=== PATIENT | female | born 2000 | race Hispanic/Latino ===

== ENCOUNTER 2022-02-10 13:01 | Outpatient (CLI) | payer OTHER | END 2022-02-10 13:02 | disposition home or self-care (01) | LOC: CSHLAB 13:01 | PROVIDERS: ATTEND Advanced Practice Midwife | DX: Z20.822 Contact with and (suspected) exposure to COVID-19 (principal) | CPT/HCPCS: U0003; U0005 ==

== ENCOUNTER 2022-02-14 | Inpatient (IN) | payer OTHER ==
[2022-02-14] MEDS ORDERED: hydrALAZINE 20 MG/ML VIAL SLOW IVP PRN ×2 (01:00→12:59)
[2022-02-14] MEDS ORDERED: Ondansetron PF 4 MG/2 ML Vial IVP PRN ×2 (01:00→12:59)
[2022-02-14] MEDS ORDERED: Promethazine HCl 25 MG/ML VIAL IM PRN ×2 (01:00→12:59)
[2022-02-14] MEDS ORDERED: ceFAZolin 2 GM/Dextrose 50 ML 2 GM in Premix Bag 1 BAG IVPB SCH (01:00)
[2022-02-14] MEDS ORDERED: Bicitra 30 ML UDCUP PO PRN (01:00)
[2022-02-14] MEDS ORDERED: Famotidine/PF 20 mg/2ml Vial SLOW IVP PRN (01:00)
[2022-02-14] MEDS ORDERED: Butorphanol Tartrate 1 MG/ML VIAL SLOW IVP PRN (01:00)
[2022-02-14 01:17] LABS: Hemoglobin 12.7 g/dL (12.0-15.5); Mean Corpuscular HGB CONC 32.8 g/dL (32.0-36.0); Mean Corpuscular Hemoglobin 28.5 pg (27.0-33.0); Mean Corpuscular Volume 86.8 fl (81.6-98.3); Mean Platelet Volume 12.4 fl (7.4-10.4); Platelet Count 248 10x3/uL (150-450); RBC Distribution Width 13.9 % (11.5-14.5); Red Blood Cell (RBC) Count 4.46 10x6/uL (3.90-5.03); White Blood Cell (WBC) Count 11.1 10x3/uL (3.5-10.5)
[2022-02-14] MEDS ORDERED: Lactated Ringer's 1,000 ML IV SCH ×2 (01:30→02:00)
[2022-02-14 01:43] LABS: Hep B Surf Ag Non-Reactive S/CO (NonReactive)
[2022-02-14 01:43] LABS: Syphilis Antibody Nonreactive (Nonreactive); Syphilis Antibody Index 0.05 S/CO (<1.00 Non-Reactive)
[2022-02-14 01:45] LABS: HBSAg Index 0.16 S/CO (0-0.99)
[2022-02-14 03:20] VITALS: BMI 43.0
[2022-02-14] MEDS ORDERED: PHENYLEPHRINE-NS 100 MCG/ML 10 ML SYRINGE ONE (05:35)
[2022-02-14] MEDS ORDERED: Morphine PF 10 MG/10 ML VIAL ONE (05:35)
[2022-02-14] MEDS ORDERED: Ondansetron PF 4 MG/2 ML Vial ONE (05:37)
[2022-02-14] MEDS ORDERED: Oxytocin 10 UNITS/ML VIAL ONE (05:37)
[2022-02-14] MEDS ORDERED: Fentanyl 100 MCG/2 ML VIAL SLOW IVP PRN (07:18)
[2022-02-14] MEDS ORDERED: Ondansetron HCl/PF 4 MG/2 ML Vial IVP PRN (07:18)
[2022-02-14] MEDS ORDERED: Meperidine HCl/PF 25 MG/ML VIAL SLOW IVP PRN (07:18)
[2022-02-14] MEDS ORDERED: HYDROmorphone 2 MG/ML VIAL SLOW IVP PRN (07:18)
[2022-02-14] MEDS ORDERED: Ketorolac Tromethamine 30 MG/ML VIAL IVP SCH ×2 (07:30→16:00)
[2022-02-14] MEDS ORDERED: Ketorolac Tromethamine 30 MG/ML VIAL ONE (07:38)
[2022-02-14 08:10] LABS: pH (Cord, venous) 7.292 (7.250-7.350)
[2022-02-14] MEDS ORDERED: NS w/ Oxytocin 30 units 500 ML ONE (10:51)
[2022-02-14] MEDS ORDERED: Zolpidem Tartrate 5 MG TAB PO PRN (12:59)
[2022-02-14] MEDS ORDERED: Boostrix 0.5 ML (Tdap) VIAL IM ONE (12:59)
[2022-02-14] MEDS ORDERED: Lanolin Ointment 7 GM TUBE TOP PRN (12:59)
[2022-02-14] MEDS ORDERED: diphenhydrAMINE 25 MG CAP PO PRN (12:59)
[2022-02-14] MEDS ORDERED: Meperidine HCl/PF 25 MG/ML VIAL IM PRN (12:59)
[2022-02-14] MEDS ORDERED: HYDROcodone/Acetaminophen 5/325 mg Tablet PO PRN (12:59)
[2022-02-14] MEDS ORDERED: Simethicone Chewable 80 MG TAB PO PRN (12:59)
[2022-02-14] MEDS ORDERED: NS w/ Oxytocin 30 units 500 ML IV SCH (12:59)
[2022-02-14] MEDS ORDERED: Prenatal Vitamin 1 TAB PO SCH (13:15)
[2022-02-14] MEDS ORDERED: Docusate 100 MG CAP PO SCH (13:15)
[2022-02-14] MEDS ORDERED: Ibuprofen 800 MG TAB PO SCH (14:00)
[2022-02-14] MEDS: Lactated Ringer's 1,000 ML IV SCH ×2 (14:15→21:12)
[2022-02-14] MEDS: Ibuprofen 800 MG TAB PO SCH (21:03)
[2022-02-14] MEDS: Docusate 100 MG CAP PO SCH (21:03)
[2022-02-15 03:53] LABS: Hemoglobin 10.6 g/dL (12.0-15.5); Mean Corpuscular HGB CONC 34.1 g/dL (32.0-36.0); Mean Corpuscular Hemoglobin 29.3 pg (27.0-33.0); Mean Corpuscular Volume 85.9 fl (81.6-98.3); Mean Platelet Volume 12.1 fl (7.4-10.4); Platelet Count 184 10x3/uL (150-450); RBC Distribution Width 14.2 % (11.5-14.5); Red Blood Cell (RBC) Count 3.62 10x6/uL (3.90-5.03)
[2022-02-15] MEDS: Lactated Ringer's 1,000 ML IV SCH ×2 (05:14→14:25)
[2022-02-15] MEDS: Ibuprofen 800 MG TAB PO SCH ×3 (05:55→21:47)
[2022-02-15] MEDS: Docusate 100 MG CAP PO SCH ×2 (08:04→21:47)
[2022-02-15] MEDS: Prenatal Vitamin 1 TAB PO SCH (08:04)
[2022-02-15] MEDS: HYDROcodone/Acetaminophen 5/325 mg Tablet PO PRN ×2 (12:24→19:36)
[2022-02-16] MEDS: HYDROcodone/Acetaminophen 5/325 mg Tablet PO PRN ×3 (03:50→13:45)
[2022-02-16] MEDS: Ibuprofen 800 MG TAB PO SCH ×3 (06:15→21:49)
[2022-02-16] MEDS: Lactated Ringer's 1,000 ML IV SCH ×3 (06:31→21:35)
[2022-02-16] MEDS: Docusate 100 MG CAP PO SCH ×2 (09:08→21:49)
[2022-02-16] MEDS: Prenatal Vitamin 1 TAB PO SCH (09:08)
[2022-02-17] MEDS: HYDROcodone/Acetaminophen 5/325 mg Tablet PO PRN ×4 (00:37→17:43)
[2022-02-17] MEDS: Ibuprofen 800 MG TAB PO SCH ×2 (05:47→14:12)
[2022-02-17] MEDS: Lactated Ringer's 1,000 ML IV SCH (05:47)
[2022-02-17 07:20] VITALS: BP 142/92; TEMP 98.3
[2022-02-17] MEDS: Prenatal Vitamin 1 TAB PO SCH (07:46)
[2022-02-17] MEDS: Docusate 100 MG CAP PO SCH (07:47)
== END 2022-02-17 17:45 | disposition home or self-care (01) | DRG 788 ==
LOC: CSHLD/OP → CSHLD 00:49 → CSHPP 13:08
PROVIDERS: ADMIT Obstetrics & Gynecology; ATTEND Obstetrics & Gynecology
PROC: 10D00Z1 Extraction of Products of Conception, Low, Open Approach (ICD-10-PCS; principal; 2022-02-14)
DX: O42.02 Full-term premature rupture of membranes, onset of labor within 24 hours of rupture (principal); O32.1XX0 Maternal care for breech presentation, not applicable or unspecified; O99.214 Obesity complicating childbirth; E66.9 Obesity, unspecified; Z3A.37 37 weeks gestation of pregnancy; Z37.0 Single live birth; Z88.0 Allergy status to penicillin
CPT/HCPCS: 36415; 51702; 82805; 85027; 86780; 86850; 86900; 86901; 87340; 99285; J1885; J2274; J2405; J2590; J7120